=== PATIENT | male | born 1960 | race Caucasian/White ===

== ENCOUNTER 2023-12-09 10:59 | Day surgery (SDC) | payer BC ==
[2023-12-09] VITALS (15 sets, daily range): BP systolic 105–148; BP diastolic 60–83; PULSE 81–100; RESP 5–26; TEMP 97.5; O2SAT 96–100
[~2023-12-09] VITALS: Ht 182.9 cm; Wt 121.0 kg
[2023-12-09] MEDS ORDERED: METO-411 PO (11:27)
[2023-12-09] MEDS ORDERED: LAN0.125T PO (11:27)
[2023-12-09] MEDS ORDERED: ATOR20TA66 PO (11:27)
[2023-12-09] MEDS ORDERED: ASPI-1397 PO (11:27)
[2023-12-09] MEDS ORDERED: FURO40TA4 PO (11:27)
[2023-12-09] MEDS ORDERED: SPIR25TA5 PO (11:27)
[2023-12-09] MEDS ORDERED: LISI5TAB22 PO (11:27)
[2023-12-09] MEDS ORDERED: SACU1TAB PO (11:27)
[2023-12-09] MEDS ORDERED: APIX5TAB3 PO (11:27)
[2023-12-09] MEDS: fentaNYL/PF 50MCG/1 ML 2ML syringe IV ONE (12:09)
[2023-12-09] MEDS: normal saline 1000ml 1,000 ML IV SCH (12:09)
[2023-12-09] MEDS: MIDAZolam 1mg/ml 10ml vial IV ONE (12:10)
== END 2023-12-09 14:36 | disposition home or self-care (01) ==
LOC: SSTAY O 10:59
PROVIDERS: ATTEND Student in an Organized Health Care Education/Training Program
DX: I48.91 Unspecified atrial fibrillation (principal); I11.0 Hypertensive heart disease with heart failure; I50.9 Heart failure, unspecified; E78.00 Pure hypercholesterolemia, unspecified; Z79.01 Long term (current) use of anticoagulants; Z79.82 Long term (current) use of aspirin; Z79.899 Other long term (current) drug therapy
CPT/HCPCS: 92960; J2250; J3010; J7030